=== PATIENT | female | born 1965 ===

== ENCOUNTER 2022-06-12 07:18 | Day surgery (SDC) | payer OTHER ==
[~2022-06-12 07:18] MED LIST: CRESTOR5 MG PO
== END 2022-06-12 19:00 | disposition home or self-care (01) ==
LOC: CIR.AMB 07:18
PROVIDERS: ATTEND Specialist
DX: N85.00 Endometrial hyperplasia, unspecified (principal); Z86.16 Personal history of COVID-19; Z20.822 Contact with and (suspected) exposure to COVID-19